=== PATIENT | male | born 1970 | race Caucasian/White ===

== ENCOUNTER 2020-06-06 10:29 | Emergency (ER) | payer BC, SELFPAY ==
--- NOTE | ~2020-06-06 | XR_ITS ---
EXAMINATION: XR foot RT min 3V DATE: 06/06/2020 10:48 INDICATION: Right foot pain. TECHNIQUE: 4 views of right foot were obtained. COMPARISON: None. FINDINGS: Bone alignment is normal. No fracture. There is mild chronic flattening of the heads of sec ond and third metatarsals, consistent with osteonecrosis (Freiberg's infraction). There is mild osteo arthritis of talonavicular joint and some of the interphalangeal joints. There are enthesophytes at t he posterior and plantar aspects of calcaneal tuberosity. IMPRESSION: 1. Mild polyarticular osteoarthritis. Reviewed, dictated and finalized at location A.
[2020-06-06 10:34] VITALS: BP 118/85; PULSE 77; RESP 16; TEMP 36.4; O2SAT 99
--- NOTE | 2020-06-06 10:48 | ED.LOWEXIN ---
HPI - Extremity Injury (Lower) General Chief Complaint: Extremity Injury, Lower Stated Complaint: INJURED R FOOT Time Seen by Provider: 06/06/20 10:48 Source: patient and RN notes reviewed Mode of arrival: ambulatory Limitations: no limitations History of Present Illness HPI Narrative: 50-year-old male presents to the [facility] with right foot pain for couple months, worse since yesterday after running. Pain is worse to the 2nd toe and radiated proximal. Mild swelling to the second metatarsal plantar aspect. Related Data Allergies Allergy/AdvReac Type Severity Reaction Status Date / Time No Known Allergies Allergy Unverified 06/06/20 10:38 Review of Systems Review of Systems: Narrative: CONSTITUTIONAL: Denies fever, chills, or sweats. CARDIOVASCULAR: Denies chest pain, palpitations, or edema. RESPIRATORY: Denies cough or dyspnea. GASTROINTESTINAL: Denies abdominal pain, nausea, vomiting, or diarrhea. GENITOURINARY: Denies dysuria or hematuria. SKIN: Denies rash or itching. MUSCULOSKELETAL: Denies back pain. Second toe pain right foot NEUROLOGIC: Denies headache, numbness, or weakness. PSYCHIATRIC: Denies anxiety or depression. All other systems reviewed are negative, except as documented in HPI. PMFSH Comments At the time of my signature, I reviewed and agree with the nursing past medical, surgical, social, and family history. There is no relevant family history pertinent to the patient complaint. Exam Narrative: Exam Narrative: GENERAL: This is a well-nourished, well-developed patient, in no apparent distress. HEAD: normocephalic, atraumatic. EYES: PERRL. Sclera clear/white. Vision is grossly intact. EARS: External ears normal, NECK: Neck supple, non-tender. CARDIOVASCULAR: Regular rate and rhythm without murmurs, gallops, or rubs. Pulse right foot RESPIRATORY: Clear to auscultation. Breath sounds equal bilaterally. No wheezes, rales, or rhonchi. SKIN: warm, intact with no suspicious lesions or rash, good texture and turgor. NEURO: awake, alert, and oriented to person, place and time. There were no obvious focal neurologic abnormalities. EXTREMITIES: Right second toe base joint tenderness with mild swelling to planter aspect. No increased warmth or redness. BACK: Nontender without deformity. Course Vital Signs Vital signs: Vital Signs Temperature 97.5 F L 06/06/20 10:34 Pulse Rate 77 06/06/20 10:34 Respiratory Rate 16 06/06/20 10:34 Blood Pressure 118/85 06/06/20 10:34 Pulse Oximetry 99 06/06/20 10:34 Temperature 97.5 F L 06/06/20 10:34 Pulse Rate 77 06/06/20 10:34 Respiratory Rate 16 06/06/20 10:34 Blood Pressure 118/85 06/06/20 10:34 Pulse Oximetry 99 06/06/20 10:34 Reviewed within normal limits MDM - Extremity Injury (Lower) MDM Narrative Medical decision making narrative: Discharge instructions reviewed with patient, as well as provided in writing per nursing staff. The instructions also include specific and strict return/GO TO THE ER as well as f/u information. All questions have been answered, and the patient deny any further questions with discharge and discharge plan. Differential Diagnosis Differential diagnosis: Likely fracture of toe and other (Foot fracture, arthritis, ligament tear, plantar fasciitis) Imaging Data Radiologist's impression: Impressions Foot X-Ray 06/06/20 10:49 IMPRESSION: 1. Mild polyarticular osteoarthritis. 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
== END 2020-06-06 11:10 | disposition home or self-care (01) ==
PROVIDERS: Emergency Provider Nurse Practitioner; PCP Physician Assistant
DX: M92.71 Juvenile osteochondrosis of metatarsus, right foot (principal)
CPT/HCPCS: 73630; 99203; G0463

== ENCOUNTER 2023-10-02 14:57 | Emergency (ER) | payer BC, SELFPAY ==
[2023-10-02 15:07] VITALS: BP 126/85; PULSE 78; RESP 16; TEMP 36.8; O2SAT 99
[2023-10-02 15:14] VITALS: BP 126/85; PULSE 78; RESP 16; TEMP 36.8; O2SAT 99
--- NOTE | 2023-10-02 15:15 | ED.ANIMALBIT ---
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 He was holding the dog while the dog got injections, the dog snapped, patient has linear shallow laceration right lower jaw line. No active bleeding on arrival. He is unable to remember last tetanus shot. He denies any other injury or trauma. He voices no other concerns or complaints today. Related Data Allergies Allergy/AdvReac Type Severity Reaction Status Date / Time No Known Allergies Allergy Unverified 06/06/20 10:38 Review of Systems Review of Systems: All systems reviewed & are unremarkable except as noted in HPI and below Constitutional: Constitutional: Reports no additional constitutional complaints ENT: Reports system reviewed and no additional complaints, except as documented Cardiovascular: Cardiovascular: Reports no additional cardiovascular complaints Respiratory: Respiratory: Reports no additional respiratory complaints Gastrointestinal: Gastrointestinal: Reports no additional gastrointestinal complaints Integumentary/Breasts: Skin/Breast: Reports as per HPI PMFSH Comments At the time of my signature, I reviewed and agree with the nursing past medical, surgical, social, and family history. There is no relevant family history pertinent to the patient complaint. Exam Const: General: cooperative, no acute distress, alert and awake Orientation/consciousness: oriented to person, oriented to place and oriented to time HENMT: Head: normal to inspection Head images: 1. shallow 2 cm lac Resp: Effort & Inspection: normal respiratory effort and able to speak in complete sentences Auscultation: clear to auscultation bilaterally, no crackles, no rales, no rhonchi and no wheezes Cardio: Palpation: normal PMI Rate: regular rate Rhythm: regular rhythm Heart sounds: S1 normal heart sound present and S2 normal heart sound present Neuro: General: oriented to person, oriented to place and oriented to time Cranial nerves: Yes CN's II-XII intact bilaterally Psych: Appearance: grossly normal Thought process: Normal thought process present Insight: Good insight present (Psych) Judgement: Good judgement present (Psych) Course Course Level of Care: Express Care Visit Vital Signs Vital signs: Vital Signs Temperature 98.2 F 10/02/23 15:07 Pulse Rate 78 10/02/23 15:07 Respiratory Rate 16 10/02/23 15:07 Blood Pressure 126/85 10/02/23 15:07 Pulse Oximetry 99 10/02/23 15:07 Temperature 98.2 F 10/02/23 15:14 Pulse Rate 78 10/02/23 15:14 Respiratory Rate 16 10/02/23 15:14 Blood Pressure 126/85 10/02/23 15:14 Pulse Oximetry 99 10/02/23 15:14 Reviewed MDM - Animal Bite MDM Narrative Medical decision making narrative: Extremely shallow laceration, patient reports his own dog did this. He denies pain. No active bleeding. Appears stable for discharge home, wound dressed, tetanus updated. Covered with 7 days of antibiotics. Emergency department for any new or worsening symptoms. Follow up with primary care provider in 1-2 weeks Differential Diagnosis Differential diagnosis: Likely bite by animal and dog bite Medical Records Attestation: I reviewed the patient's medical records. Discharge Plan Discharge Clinical Impression: Dog bite Patient Disposition: Home, Self-Care Condition: Stable Instructions: Antibiotic Form, Diphtheria/Pertussis/Tetanus Vaccine (By injection), Animal Bite (ED) Additional Instructions: keep site clean and dry. Take medications as prescribed. explained to patient that it is not typical to suture wound secondary to dog bite. He verbalized
[2023-10-02] MEDS: TETANUS,DIPHTHERIA,AC PERTUSSIS ADULT (0.5 ML) BOOSTRIX IM (15:24)
== END 2023-10-02 15:45 | disposition home or self-care (01) ==
PROVIDERS: Emergency Provider Nurse Practitioner Family; PCP Physician Assistant
DX: S01.81XA Laceration without foreign body of other part of head, initial encounter (principal); W54.0XXA Bitten by dog, initial encounter; Z23 Encounter for immunization
CPT/HCPCS: 90471; 90715; 99203; G0463